=== PATIENT | female | born 1995 | race Caucasian/White ===

== ENCOUNTER 2018-08-03 08:00 | Inpatient (IN) ==
[2018-08-03] MEDS ORDERED: Naloxone 0.4 MG/ML INJ IVP PRN (08:26)
[2018-08-03] MEDS ORDERED: Metoclopramide 10 MG/2 ML VIAL IVP PRN (08:26)
[2018-08-03] MEDS ORDERED: Famotidine 20 MG/2 ML VIAL IVP PRN (08:26)
[2018-08-03] MEDS ORDERED: *HR* Nalbuphine 10 MG/ML AMPUL IVP PRN (08:26)
[2018-08-03] MEDS ORDERED: Penicillin G Potassium 5,000,000 UNIT in 0.9 % Sodium Chloride Mini Bag 100 ML IVPB ONE (08:28)
[2018-08-03] MEDS ORDERED: Ringers Solution, Lactated 1,000 ML IVC SCH (08:30)
[2018-08-03] MEDS ORDERED: Oxytocin 20 units/ LR 1000 mL 20 UNIT/1,000 ML BAG IVC SCH (08:45)
[2018-08-03 08:51] LABS: Basophils % 0.5 %; Eosinophils # 0.2 K/mcL (0.0-0.6); Eosinophils % 1.8 %; Hematocrit 39.2 % (35.3-44.9); Hemoglobin 12.8 g/dL (11.5-15.4); Immature Granulocytes % 0.4 % (0-4); Lymphocytes # 1.9 K/mcL (0.6-4.6); Lymphocytes % 22.6 %; Mean Corpuscular HGB Conc 32.7 g/dL (31.6-35.5); Mean Corpuscular Hemoglobin 30.3 pg (28.0-33.3); Mean Corpuscular Volume 92.7 fL (83.0-100.0); Mean Platelet Volume 11.7 fL (9.4-12.4); Monocytes # 0.6 K/mcL (0.0-1.3); Monocytes % 7.2 %; Neutrophils # 5.6 K/mcL (1.6-8.9); Platelet Count 217 K/mcL (140-400); Red Blood Count 4.23 M/mcL (3.82-4.97); Red Cell Distribution Width 14.3 % (11.5-14.5); Segmented Neutrophils % 67.5 %
[2018-08-03] MEDS ORDERED: miSOPROStol 25 MCG TABLET PO ONE (09:00)
[2018-08-03] MEDS ORDERED: Epidural Premix (fent/bupiv) 110 ML EP SCH (09:15)
--- NOTE | 2018-08-03 09:39 | Anesthesia Evaluation PreOp ---
Date of Encounter: 08/03/18 Time of Encounter: 09:14 - Past History Planned Operation: del, induction Cardiac History: Denies any Significant Hx Pulmonary History: Denies Any Significant HX OFFICE MESSENGER History: Denies Any Significant HX Other Medical History: Denies Any Significant HX Anesthesia History: No Prior Anesthetic Complications, Past Anesthesia Alcohol Use: occasionally Drug use: none Medications and Allergies Dicyclomine [Bentyl] 20 mg PO QID PRN #60 capsule 10/06/15 [Rx] Ondansetron ODT [Zofran ODT] 4 mg SL Q6HR PRN #30 tab.rapdis 10/06/15 [Rx] Naproxen [Naprosyn] 500 mg PO BID PRN #10 tablet 04/16/16 [Rx] Sulfamethoxazole/Trimeth DS [Bactrim DS] 1 each PO BID #10 tablet 04/16/16 [Rx] Allergy/AdvReac Type Severity Reaction Status Date / Time No Known Allergies Allergy Verified 10/06/15 09:50 Anesthesia Results - Labs 08/03/18 08:25 Anesthesia Exam - HEENT Pupil (Motor): Pupils equal Mallampati: II Teeth: Normal Oral Opening: Greater than 3 - OFFICE MESSENGER LOC: Oriented OFFICE MESSENGER Motor: Normal RUE, Normal LUE, Normal RLE, Normal LLE, Normal Face OFFICE MESSENGER Sensory: Normal: RUE, LUE, RLE, LLE, Face - Cardiac Rhythm: Regular Murmur: None - Pulmonary Breath Sounds: bilateral Clear Respiratory Effort: Symmetrical Anesthesia Assess/Plan ASA Score: 2 Level of consciousness: Cooperative, Oriented Anesthetic Plan: General, Spinal, Epidural Monitoring Plan: Standard Monitors Recovery Plan: PACU
[2018-08-03] MEDS ORDERED: Epidural Premix (fent/bupiv) 110 ML EP ONE (09:40)
[2018-08-03] MEDS ORDERED: Lidocaine -MPF 2% 5 ML VIAL ONE (09:41)
[2018-08-03 09:43] LABS: Amphetamine Screen,Urine Negative ng/mL (Cutoff=1000); Barbiturate Screen,Urine Negative ng/mL (Cutoff=200); Benzodiazepines Screen,Urine Negative ng/mL (Cutoff=200); Cannabinoid Screen,Urine Negative ng/mL (Cutoff = 50); Cocaine Screen,Urine Negative ng/mL (Cutoff= 300); Opiate Screen,Urine Negative ng/mL (Cutoff=300); Phencyclidine Screen,Urine Negative ng/mL (Cutoff=25)
--- NOTE | 2018-08-03 13:17 | OB/GYN History & Physical ---
Date of Encounter: 08/03/18 Time of Encounter: 13:12 Assessment and Plan (1) 39 weeks gestation of Current visit: Yes Status: Acute Admitted for induction of labor (2) NST (non-stress test) reactive Current visit: Yes Status: Acute FHR 130 bpm, moderate variability, +15x15 accels, no decels. (3) Positive GBS test Current visit: Yes Status: Acute PCN IVPB q4 hours until delivery (4) Circumvallate placenta during in third trimester, antepartum Current visit: Yes Status: Acute Induction of labor at 39w5d History of Present Illness Chief complaint: Induction of labor at 39w5d HPI: Ms. Palomino is a 22 year old female who presents today for induction of labor at term. Her has been uncomplicated aside from have a circumvallate placenta. She reports positive movement, denies leakage and bleeding. She is a patient of [facility]. Blood type O + GBS Positive Rubella Immune HBSAG negative Varicella Non-Immune T. Pall negative HIV NR Past Med Surg Social Fam HX - Past Medical History Source: patient Medical history: no medical history Psychiatric history: no psych history - Past Surgical History Additional surgical history: wisdom teeth removal - Social History Smoking Status: Current every day smoker Smokeless Tobacco Status: No Alcohol use: occasionally Drug use: none Current living situation: Home - Independent Activity Level: Independent ambulation Recent Out of Country Travel Within the Last 8 Weeks: No Exposure or Possible Exposure to Illness During Travel: No - Family History Mother Living Status: Still Living Hx Family Cardiac Disorders: Yes (heart disease) Hx Family Respiratory Disorders: No Hx Family Cancer: No Hx Family GI Disorders: No Hx Family Genitourinary Disorders: No Hx Family Endocrine Disorder: No Hx Family Musculoskeletal Disorders: No Hx Family Neuromuscular Disorders: No Hx Family Neurologic Disorders: No Hx Family HEENT Disorders: No Hx Family Autoimmune Disorders: No Hx Family Reproductive Disorders: No Hx Family Psychosocial Disorders: No Hx Family Medical Disorders: Yes (hypertension, hypoglycemia) Obstetrical History - Pregnancies : 2 Para: 1 Term: 1 : 0 Ab's: 0 Livin Medications and Allergies Dicyclomine [Bentyl] 20 mg PO QID PRN #60 capsule 10/06/15 [Rx] Ondansetron ODT [Zofran ODT] 4 mg SL Q6HR PRN #30 tab.rapdis 10/06/15 [Rx] Naproxen [Naprosyn] 500 mg PO BID PRN #10 tablet 04/16/16 [Rx] Sulfamethoxazole/Trimeth DS [Bactrim DS] 1 each PO BID #10 tablet 04/16/16 [Rx] Allergy/AdvReac Type Severity Reaction Status Date / Time No Known Allergies Allergy Verified 10/06/15 09:50 Exam - Constitutional Constitutional: well developed, well nourished, no acute distress, average body habitus - HEENT HEENT: Normocephaly - Neck Neck exam: full ROM, normal inspection - Lungs Respiratory exam: CTAB - Cardiovascular Cardiovascular exam: RRR, +S1, +S2 - Abdomen Abdomen: Present: bowel sounds normal, gravid, non tender - Extremities Extremities exam: full ROM, normal capillary refill, normal inspection, warm - Vulva Vulva: bilateral: normal - Vagina Vagina: Present: normal moisture - Cervix Dilation: 3 Effacement: 80 Station: -1 - Uterus Uterus exam: Present: normal size - Anus/Rectum Anus/Rectum: Present: normal perianal skin Results Result Diagrams: 08/03/18 08:25 All other labs normal. - VTE Reasons for not Prescribing Prophylaxis: Treatment not Indicated - Low risk for VTE
--- NOTE | 2018-08-03 13:30 | OB Labor Progress Note ---
Date of Encounter: 08/03/18 Time of Encounter: 13:28 Labor Progress Note - Subjective Subjective: Patient resting comfortably in bed. She reports feeling cramping but not stating it as pain - Vital Signs Vital Signs: WNL - Cervix Cervix: 3/80/-1 - Heart Tones Heart Tones: FHR 130 bpm, moderate variability, +15x15 accels, no decels. - [place]: Irregular - Interventions Interventions: SVE Cervical marie placed without difficulty and instilled with 60 mL sterile water - Plan Physician notified: Yes Physician notified details: Dr. Dougherty aware of current SVE and plan of care. Plan: Continue PCN for GBS prophylaxis AROM when appropriate Patient may have epidural when she desires. Consider Pitocin augmentation
[2018-08-03] MEDS: Penicillin G Potassium 2,500,000 UNIT in 0.9 % Sodium Chloride 100 ML IVPB SCH ×3 (14:52→22:57)
--- NOTE | 2018-08-03 15:04 | OB Labor Progress Note ---
Date of Encounter: 08/03/18 Time of Encounter: 15:02 Labor Progress Note - Subjective Subjective: Patient coping well with contractions. Having some pain with them now. - Vital Signs Vital Signs: WNL - Cervix Cervix: 6/80/-1 - Heart Tones Heart Tones: FHR 140 bpm, moderate variability, + 15x15 accels, no decels - [place] Cornel[place]: 2-3 min - Interventions Interventions: SVE AROM for moderate amount of clear fluid - Plan Physician notified: Yes Physician notified details: Dr. Dougherty aware of SVE and AROM Plan: Have epidural placed per patient request at this time Consider Pitocin augmentation if needed. Anticipate
--- NOTE | 2018-08-03 15:36 | Anesthesia Procedures ---
Addendum entered and electronically signed by Kishore Carbone CRNA 08/04/18 04:59: Infant Delivery Date: 08/03/18 Infant Delivery Time: 23:44 Original Note: Date of Encounter: 08/03/18 Time of Encounter: 15:22 Procedures: Anesthesia - Epidural/Spinal Patient ID/Chart reviewed: Yes Patient examined: Yes OB Eval: Gestational age: term OB Eval: : 2 OB Eval: Hx Para: 1 OB Eval: Contractions: Non-stressed pattern Consent Obtained: Yes Supplemental Oxygen: None/Room Air Site Prep: Aseptic Technique, Sterile prep and drape, 0.5% Chlorhexidine/Alcohol Patient position: upright Local Anesthetic: Lidocaine 1% Amount of Local Anesthetic used: 2 Touhy Needle Gauge: 18 Touhy Needle Depth (cm): 6 Catheter Depth at Skin (cm): 10 Test Dose (1.5% Lido + Epi): Volume given (mls): 4 Test Dose Result: Negative Loading Dose: Other: 10ml from solution Loading Dose Administered: Thru Catheter Infusion Med: 0.125% Bupivacaine w/ 2 mcg/ml Fentanyl Infusion Rate (mls/hr): [address]: Tegaderm, Tape Interspace Used: L3-L4 Loss of Resistance (AIME): Yes (saline) Blood: No CSF: No Paresthesia: No Procedure: vss though out procedure, FHR stable per RN's
--- NOTE | 2018-08-03 16:34 | OB Labor Progress Note ---
Date of Encounter: 08/03/18 Time of Encounter: 16:32 Labor Progress Note - Subjective Subjective: Patient resting comfortably after epidural placement - Vital Signs Vital Signs: WNL, afebrile - Cervix Cervix: 6/80/-1 - Heart Tones Heart Tones: FHR 135 bpm, moderate variability, + 15x15 accels, variable decel x 2 with vomiting. - [employer]: Irregular - Interventions Interventions: SVE IUPC inserted for accurate contraction monitoring and Pitocin augmentation - Plan Physician notified: No Plan: Initiate Pitocin augmentation when necessary to maintain MVU > 200 Frequent position change with use of peanut ball. Anticipate
--- NOTE | 2018-08-03 19:14 | OB Labor Progress Note ---
Date of Encounter: 08/03/18 Time of Encounter: 19:11 Labor Progress Note - Subjective Subjective: Patient is completely comfortable with epidural in place. Denies pain. - Vital Signs Vital Signs: WNL, afebrile - Cervix Cervix: 6/80/-1 - Heart Tones Heart Tones: FHR 140 bpm, moderate variability, +15x15 accels, no decels - [place]: 2-3 minutes - Interventions Interventions: SVE - Plan Plan: Continue increasing Pitocin as needed. Frequent position changes with peanut ball. Anticipate
[2018-08-03] MEDS ORDERED: Acetaminophen 650 MG RECTAL SUPP RC ONE (22:24)
--- NOTE | 2018-08-03 22:38 | OB Labor Progress Note ---
Date of Encounter: 08/03/18 Time of Encounter: 22:36 Labor Progress Note - Subjective Subjective: Patient resting between contractions. Pushing effectively with some contractions. - Vital Signs Vital Signs: BP WNL, Temp 100.7 axillary - Cervix Cervix: Complete/ +1 and pushing - Heart Tones Heart Tones: FHR 170 bpm, minimal variability, no accels, variable decelerations with contractions. - [place]: q2-3 minutes - Interventions Interventions: Pushing effectively with some contractions. Multiple pushing techniques utilized. - Plan Physician notified: Yes Physician notified details: Dr. Dougherty updated about patient complete and pushing, maternal temp and tachycardia. Informed of plan to give rectal Tylenol and allow a rest period before beginning pushing again. Plan: Give rectal Tylenol for maternal temp Stop pushing to allow rest period, laboring down Continue close surveillance Begin pushing again once patient has been able to rest. Anticipate
[2018-08-04] MEDS ORDERED: Ibuprofen 600 MG TABLET PO ONE (00:11)
--- NOTE | 2018-08-04 00:15 | OB/GYN Procedure Note ---
Delivery - Delivery Date: 08/04/18 Provider: Rita Moran Intrapartum events: febrile- temp >100.3 Delivery induction: oxytocin, marie, misoprostol Delivery augmentation: rupture of membranes Delivery monitor: external FHT, internal uterine Anesthesia: epidural Quantitated Blood Loss: 250 - Infant (s) Infant A Delivery Date: 08/03/18 Infant Delivery Time: 23:44 Presentation: vertex Position: OA Route of delivery: Gender: Female Viability: Viable Pounds: 8 Ounces: 3 Weight Gram: 3700 kg at 1 minute: 7 at 5 mins: 9 Specimens collected: cord blood Placenta: spontaneous Cord: nuchal cord, 3 umbilical vessels, delivered through nuchal - Repair Episiotomy: none Laceration Description: Superficial (perineal) - Complications Delivery complications: none Delivery comments: Pushing was restarted after a brief period of rest and laboring down. Under maternal effort, spontaneous delivery of viable female over superficial laceration of the perineum, repaired with 3-0 Vicryl. Infant placed on maternal abdomen for drying and stimulation, Apgars 7 and 9 at one and 5 minutes respectively. weighs 8 lbs. 3 oz or 3700 grams. Cord clamped and cut after pulsation ceased. Spontaneous delivery of intact placenta, EBL 250 mL's. Nuchal cord x one, delivered through, no shoulder dystocia, terminal meconium noted with delivery of infant. Mother and infant in kangaroo care for 2 hour recovery. - Disposition Mom disposition: stable in LDR [place] disposition: stable in LDR
[2018-08-04] MEDS ORDERED: Measles/Mumps/Rubella Vacc 0.5 ML VIAL SQ PRN (02:01)
[2018-08-04] MEDS ORDERED: Benzocaine/Menthol 56 GM AEROSOL SPRAY TP PRN (02:01)
[2018-08-04] MEDS ORDERED: Oxytocin 20 units/ LR 1000 mL 20 UNIT/1,000 ML BAG IVC SCH (02:01)
[2018-08-04] MEDS ORDERED: Acetaminophen 325 MG TABLET PO PRN (02:01)
[2018-08-04] MEDS ORDERED: Lanolin 7 G OINT...G. TP PRN (02:01)
[2018-08-04] MEDS: Prenatal Vit/FA 1 EACH TABLET PO SCH (08:43)
--- NOTE | 2018-08-04 09:22 | OB/GYN Progress Note ---
Date of Encounter: 08/04/18 Time of Encounter: 09:20 - Assessment and Plan (1) Vaginal delivery Current Visit: Yes Status: Acute Continue routine care Meeting milestones appropriately Anticipate discharge home tomorrow POC per consult with Dr Abdi Subjective - Subjective Principal diagnosis: Vaginal delivery Interval history: S/P vaginal delivery day 1 Pain well controlled Lochia light and without clots VSS Tolerating regular diet; passing flatus Voiding without difficulty Breast feeding Anticipate discharge home tomorrow POC per consult with Dr Abdi Patient reports: appetite normal, voiding normally, pain well controlled, ambulating normally [place]: doing well, nursing well Objective - Latest Vital Signs Latest vital signs: Vital Signs Temp Pulse Pulse Resp BP Pulse Ox 08/04/18 07:57 98.2 F 67 14 103/65 95 08/04/18 05:00 98.1 F 54 60 14 117/67 95 08/04/18 04:00 98.1 F 64 14 127/67 97 08/04/18 03:00 98.3 F 55 14 116/70 96 Intake and Output 08/03/18 08/04/18 08/04/18 23:59 07:59 15:59 Intake Total 0 / 0 575 / 575 250 / 250 Output Total 700 / 700 Balance 0 / 0 -125 / -125 250 / 250 Intake: IV Fluids 0 / 0 575 / 575 Pitocin 20 unit In 1,000 ml @ 575 / 575 125 mls/hr IVC .Q8H SERENA Rx#: [id number] Pfizerpen 2,500,000 UNIT In 0.9 0 / 0 % Sodium Chloride 100 ML @ 100 mls/hr IVPB Q4HR SERENA Rx#: [id number] Oral 250 / 250 Output: Urine 700 / 700 Other: Meal Breakfast Percent of Meal Consumed 50% Weight 68.2 kg Patient Weight 08/04/18 23:59 Weight 68.2 kg - Exam Lungs: bilateral: normal Chest: Normal S1, Normal S2 Extremities: Present: normal Abdomen: Present: normal appearance, soft. Absent: gravid Uterus: Present: normal, firm. Absent: tenderness Uterus Position: At Umbilicus, Midline - Labs Labs: Laboratory Results - last 24 hr 08/03/18 08:25 Urine Opiates Screen Negative Ur Barbiturates Screen Negative Ur Phencyclidine Scrn Negative Ur Amphetamines Screen Negative U Benzodiazepines Scrn Negative Urine Cocaine Screen Negative U Marijuana (THC) Screen Negative
[2018-08-04] MEDS: Ibuprofen 600 MG TABLET PO PRN (09:51)
[2018-08-05] MEDS: Prenatal Vit/FA 1 EACH TABLET PO SCH (07:57)
[2018-08-05] MEDS: Ibuprofen 600 MG TABLET PO PRN (07:57)
[2018-08-05 08:14] VITALS: BP 115/79
--- NOTE | 2018-08-05 08:15 | Discharge Summary ---
Date of Encounter: 08/05/18 Time of Encounter: 08:09 - Discharge Diagnosis (1) Status post vaginal delivery Priority: Primary Status: Acute Comments: Patient meeting day one milestones. Pain well-controlled with prescribed medications, tolerating regular diet. Voiding without difficulty. Positive bowel movement. Anticipate discharge today (2) Laceration of superficial layers of perineal structures Priority: Secondary Status: Acute Comments: Dermoplast spray as needed Motrin for pain (3) Breast feeding status of mother Priority: Secondary Status: Acute Comments: support as needed Will give prescription for breast pump - Discharge Medications Prescriptions: Ibuprofen [Motrin] 600 mg PO Q6HR PRN #60 tablet PRN Reason: Cramping Breast Pump [BREAST PUMP] 1 each .ROUTE AD #1 each Home Medications: Acetaminophen [Tylenol] 650 mg PO Q6HR PRN tablet 08/05/18 [Rx] Benzocaine/Menthol [place] [Dermoplast [place]] 1 appl TP QID PRN aerosol 08/05/18 [Rx] Breast Pump [BREAST PUMP] 1 each .ROUTE AD #1 each 08/05/18 [Rx] Docusate [Colace] 100 mg PO BID capsule 08/05/18 [Rx] Ibuprofen [Motrin] 600 mg PO Q6HR PRN #60 tablet 08/05/18 [Rx] Lanolin [Lansinoh] 1 appl TP TID PRN oint...g. 08/05/18 [Rx] Mupirocin [Bactroban Oint] 1 appl NS BID tube 08/05/18 [Rx] Vit/FA 1 each PO DAILY tablet 08/05/18 [Rx] Allergies/Adverse Reactions: Allergy/AdvReac Type Severity Reaction Status Date / Time No Known Allergies Allergy Verified 10/06/15 09:50 Data Procedures and tests throughout hospitalization: Laboratory Tests 08/03/18 08/03/18 08:25 08:25 WBC 8.2 RBC 4.23 Hgb 12.8 Hct 39.2 MCV 92.7 MCH 30.3 MCHC 32.7 RDW 14.3 Plt Count 217 MPV 11.7 Immature Gran % 0.4 Seg Neutrophils % 67.5 Lymphocytes % 22.6 Monocytes % 7.2 Eosinophils % 1.8 Basophils % 0.5 Neutrophils # 5.6 Lymphocytes # 1.9 Monocytes # 0.6 Eosinophils # 0.2 Basophils # 0.0 Urine Opiates Screen Negative Ur Barbiturates Screen Negative Ur Phencyclidine Scrn Negative Ur Amphetamines Screen Negative U Benzodiazepines Scrn Negative Urine Cocaine Screen Negative U Marijuana (THC) Screen Negative Ur Drug Screen Interp See Below Date of admission: 08/03/18 08:06 Consults: 08/04/18 02:01 Consult to Propeller Layout Worker [CONS] Routine Comment: Vaginal delivery, consult needed Discharging clinician: Rita Moran Anticipated date of discharge: 08/05/18 - Patient Status Disposition: Home, Self-Care Condition: Good Functional capacity at discharge: independent ambulation Overall status at discharge: patient is progressing back to baseline - Discharge Instructions - Diet and Activity Activity: resume usual activities as tolerated Diet: regular diet Hospital Course Reason for admission: induction of labor, IUP at term Delivery: Episiotomy: none Laceration: other (superficial perineal) Other procedures: none complications: none Discharge diagnosis: IUP at term delivered [place] baby: female Hospital course: Pounds and was originally admitted for induction of labor at 39 weeks 5 days. She progressed normally and had a spontaneous vaginal delivery. No complications were noted in the period and we will discharge her home today. Patient meeting day one milestones. Pain well-controlled with prescribed medications, tolerating regular diet. Voiding without difficulty. No bowel movement yet. Anticipate discharge today. Patient plans to discuss a tubal ligation at her follow-up appointment. Time Attestation: Total time spent providing and/or coordinating discharge services: Time Spent: Less than 30 minutes Exam - Constitutional Vitals: Temp Pulse Resp BP Pulse Ox 97.5 F L 68 16 123/78 98 08/04/18 19:37 08/04/18 19:37 08/04/18 19:37 08/04/18 19:37 08/04/18 19:37 General appearance IM: cooperative, A&O X 3, pleasant, no acute distress, answers questions appropriately - Respiratory Respiratory exam: Present: CTAB - Cardiovascular Cardiovascular exam IM: Present: RRR, +S1, +S2 - GI/Abdominal GI/Abdominal exam IM: normal bowel sounds - Rectal Rectal exam: deferred - External exam: normal external exam Uterine Tone: Firm Uterus Position: At Umbilicus, Midline - Extremities Exam Extremities exam IM: Present: full ROM, normal capillary refill, normal inspection - Neurological Exam Neurological exam: alert, normal gait, oriented X3
== END 2018-08-05 11:30 | disposition home or self-care (01) | DRG 560 ==
LOC: 1NENULAB 08:06 → 1NENUOBS 08-04 01:48
PROVIDERS: ADMIT Registered Nurse; ATTEND Registered Nurse

== ENCOUNTER 2019-07-11 12:33 | Inpatient (IN) ==
[2019-07-11 13:10] LABS: Bilirubin,Urine Negative (Negative); Blood,Urine Negative (Negative); Clarity,Urine Cloudy (Clear); Color,Urine Yellow (Yellow); Glucose,Urine (UA) Normal (Normal); Ketones,Urine Negative (Negative); Leukocyte Esterase,Urine Small (Negative); Nitrite,Urine Negative (Negative); PH,Urine 6.5 pH Units (5.0-8.0); Protein,Urine Trace mg/dL (Neg-Trace); Specific Gravity,Urine 1.025 (1.010-1.025); Urobilinogen,Urine Normal (Normal)
[2019-07-11 13:13] LABS: Bacteria,Urine Moderate per hpf (None-Few); Hyaline Casts,Urine None Seen per lpf (None-Few); Squamous Epithelial Cell,Urine Many per lpf (None-Few)
[2019-07-11 13:21] LABS: Amphetamine Screen,Urine Negative ng/mL (Cutoff=1000); Barbiturate Screen,Urine Negative ng/mL (Cutoff=200); Benzodiazepines Screen,Urine Negative ng/mL (Cutoff=200); Cannabinoid Screen,Urine Positive ng/mL (Cutoff = 50); Cocaine Screen,Urine Negative ng/mL (Cutoff= 300); Opiate Screen,Urine Negative ng/mL (Cutoff=300); Phencyclidine Screen,Urine Negative ng/mL (Cutoff=25)
[2019-07-11 13:51] LABS: Basophils # 0.1 K/mcL (0.0-0.2); Basophils % 0.5 %; Eosinophils # 0.2 K/mcL (0.0-0.6); Eosinophils % 1.7 %; Hematocrit 43.5 % (35.3-44.9); Hemoglobin 14.5 g/dL (11.5-15.4); Immature Granulocytes % 0.3 % (0-4); Lymphocytes # 2.1 K/mcL (0.6-4.6); Lymphocytes % 20.8 %; Mean Corpuscular HGB Conc 33.3 g/dL (31.6-35.5); Mean Corpuscular Volume 90.1 fL (83.0-100.0); Mean Platelet Volume 10.1 fL (9.4-12.4); Monocytes # 0.6 K/mcL (0.0-1.3); Monocytes % 5.7 %; Neutrophils # 7.2 K/mcL (1.6-8.9); Platelet Count 341 K/mcL (140-400); Red Blood Count 4.83 M/mcL (3.82-4.97); Red Cell Distribution Width 13.2 % (11.5-14.5); White Blood Count 10.2 K/mcL (4.3-11.1)
[2019-07-11 14:07] LABS: BUN/Creatinine Ratio 13 (6-26); Blood Urea Nitrogen 10 mg/dL (6-20); Carbon Dioxide 23 mEq/L (23-29); Chloride 105 mEq/L (98-107); Ethanol < 10 mg/dL (Less than 10); Glucose 92 mg/dL (70-105); Osmolality,Calculated 281 (280-300); Potassium 3.7 mEq/L (3.5-5.1); Sodium 136 mEq/L (136-145); eGFR For African Americans > 60 (> 60); eGFR For Non-African Americans > 60 (> 60)
[2019-07-11] MEDS ORDERED: MOM Conc 10 ML UD.LIQ PO PRN (17:04)
[2019-07-11] MEDS ORDERED: Ibuprofen 400 MG TABLET PO PRN (17:04)
[2019-07-11] MEDS ORDERED: Haloperidol Lactate 5 MG/ML VIAL IM PRN (17:04)
[2019-07-11] MEDS ORDERED: *HR* LORazepam 2 MG/ML VIAL IM PRN (17:04)
[2019-07-11] MEDS ORDERED: Mag Hydrox/Al Hydrox/Simeth 30 ML UDC PO PRN (17:04)
[2019-07-11] MEDS ORDERED: *HR* LORazepam 1 MG TABLET PO PRN (17:04)
[2019-07-12] MEDS: BuPROPion XL (24 HR) 150 MG TABLET PO SCH (09:55)
[2019-07-12 11:27] LABS: Thyroid Stimulating Hormone 2.132 mcIU/mL (0.340-5.600)
[2019-07-12] MEDS: hydrOXYzine pamoate 25 MG CAPSULE PO PRN (20:43)
[2019-07-12] MEDS: traZODone 50 MG TABLET PO PRN (20:43)
[2019-07-13] MEDS: BuPROPion XL (24 HR) 150 MG TABLET PO SCH (10:04)
[2019-07-13] MEDS: traZODone 50 MG TABLET PO PRN (21:09)
[2019-07-13] MEDS: hydrOXYzine pamoate 25 MG CAPSULE PO PRN (21:09)
[2019-07-14] MEDS: BuPROPion XL (24 HR) 150 MG TABLET PO SCH (09:40)
[2019-07-14 09:48] VITALS: BP 111/72
== END 2019-07-14 10:36 | disposition home or self-care (01) | DRG 885 ==
LOC: EMEROOARM 12:33 → 1ANU 16:08
PROVIDERS: ADMIT Psychiatry & Neurology Psychiatry; ATTEND Psychiatry & Neurology Psychiatry

== ENCOUNTER 2020-11-12 00:16 | Inpatient (IN) ==
[2020-11-12 00:57] LABS: Bilirubin,Urine Negative (Negative); Blood,Urine Negative (Negative); Clarity,Urine Clear (Clear); Color,Urine Colorless (Yellow); Glucose,Urine (UA) Normal (Normal); Ketones,Urine Negative (Negative); Leukocyte Esterase,Urine Negative (Negative); Nitrite,Urine Negative (Negative); Protein,Urine Negative (Neg-Trace); Specific Gravity,Urine < 1.005 (1.010-1.025); Urobilinogen,Urine Normal (Normal)
[2020-11-12 00:57] LABS: Basophils # 0.1 K/mcL (0.0-0.2); Basophils % 0.6 %; Eosinophils # 0.1 K/mcL (0.0-0.6); Eosinophils % 1.1 %; Hematocrit 45.9 % (35.3-44.9); Hemoglobin 15.1 g/dL (11.5-15.4); Immature Granulocytes % 0.3 % (0-4); Lymphocytes # 2.2 K/mcL (0.6-4.6); Lymphocytes % 21.7 %; Mean Corpuscular HGB Conc 32.9 g/dL (31.6-35.5); Mean Corpuscular Hemoglobin 31.7 pg (28.0-33.3); Mean Corpuscular Volume 96.4 fL (83.0-100.0); Mean Platelet Volume 10.1 fL (9.4-12.4); Monocytes # 0.7 K/mcL (0.0-1.3); Monocytes % 6.6 %; Platelet Count 269 K/mcL (140-400); Red Blood Count 4.76 M/mcL (3.82-4.97); Red Cell Distribution Width 13.6 % (11.5-14.5); Segmented Neutrophils % 69.7 %; White Blood Count 10.1 K/mcL (4.3-11.1)
[2020-11-12 01:20] LABS: Acetaminophen < 10 mcg/mL (10-20); BUN/Creatinine Ratio 11 (6-26); Blood Urea Nitrogen 8 mg/dL (6-20); Calcium 9.2 mg/dL (8.6-10.3); Carbon Dioxide 19 mEq/L (23-29); Chloride 109 mEq/L (98-107); Chol/HDL Ratio 3.7 (0-4.9); Cholesterol 179 mg/dL (< 200); Ethanol 160 mg/dL (Less than 10); Glucose 120 mg/dL (70-105); HDL Cholesterol 49 mg/dL (40-59); LDL Cholesterol,Calculated 109 mg/dL (< 100); Osmolality,Calculated 290 (280-300); Potassium 3.8 mEq/L (3.5-5.1); Salicylate < 2.5 mg/dL (15.0-30.0); Sodium 140 mEq/L (136-145); Triglycerides 103 mg/dL (< 150); Troponin I < 0.03 ng/mL (< 0.04); eGFR For African Americans > 60 (> 60); eGFR For Non-African Americans > 60 (> 60)
[2020-11-12 01:46] LABS: Estimated Average Glucose 103 mg/dl; Hemoglobin A1C 5.2 %
[2020-11-12 02:13] LABS: Amphetamine Screen,Urine Negative ng/mL (Cutoff=1000); Barbiturate Screen,Urine Negative ng/mL (Cutoff=200); Benzodiazepines Screen,Urine Negative ng/mL (Cutoff=200); Cannabinoid Screen,Urine Negative ng/mL (Cutoff = 50); Cocaine Screen,Urine Negative ng/mL (Cutoff= 300); Opiate Screen,Urine Negative ng/mL (Cutoff=300); Phencyclidine Screen,Urine Negative ng/mL (Cutoff=25)
[2020-11-12] MEDS ORDERED: 0.9 % Sodium Chloride 1,000 ML IVC ONE (02:47)
[2020-11-12] MEDS ORDERED: Haloperidol Lactate 5 MG/ML VIAL IM PRN (10:26)
[2020-11-12] MEDS ORDERED: Nicotine 14 MG PATCH.TD24 TD PRN (10:26)
[2020-11-12] MEDS ORDERED: *HR* LORazepam 1 MG TABLET PO PRN (10:26)
[2020-11-12] MEDS ORDERED: hydrOXYzine pamoate 25 MG CAPSULE PO PRN (10:26)
[2020-11-12] MEDS ORDERED: *HR* LORazepam 2 MG/ML VIAL IM PRN (10:26)
[2020-11-12] MEDS ORDERED: Acetaminophen 325 MG TABLET PO PRN (10:26)
[2020-11-12] MEDS ORDERED: MOM Conc 10 ML UD.LIQ PO PRN (10:26)
[2020-11-12] MEDS ORDERED: Mag Hydrox/Al Hydrox/Simeth 30 ML UDC PO PRN (10:26)
[2020-11-12] MEDS ORDERED: haloperidoL 5 MG TABLET PO PRN (10:26)
[2020-11-12] MEDS: traZODone 50 MG TABLET PO PRN (21:14)
[2020-11-12] MEDS: QUEtiapine Fumarate 25 MG TABLET PO PRN (21:14)
[2020-11-13] MEDS: traZODone 50 MG TABLET PO PRN (21:13)
[2020-11-13] MEDS: QUEtiapine Fumarate 25 MG TABLET PO PRN (21:13)
[2020-11-14] MEDS: cephALEXin 500 MG CAPSULE PO SCH ×2 (12:35→21:10)
[2020-11-14] MEDS: traZODone 50 MG TABLET PO PRN (21:10)
[2020-11-14] MEDS: QUEtiapine Fumarate 25 MG TABLET PO PRN (21:10)
[2020-11-15] MEDS: cephALEXin 500 MG CAPSULE PO SCH (08:57)
[2020-11-15 10:08] VITALS: BP 124/81
== END 2020-11-15 14:20 | disposition home or self-care (01) | DRG 817 ==
LOC: EMEROOARM 00:16 → 1ANU 09:47
PROVIDERS: ADMIT Psychiatry & Neurology Psychiatry; ATTEND Psychiatry & Neurology Psychiatry